=== PATIENT | male | born 1975 | race Caucasian/White ===

== ENCOUNTER 2021-04-21 11:31 | Emergency (ER) | payer MEDICARE, MEDICAID ==
--- NOTE | 2021-04-21 11:44 | EDM.PDOC ---
ED HPI GENERAL MEDICAL PROBLEM - General Stated Complaint: fell down 8 steps Time Seen by Provider: 04/21/21 11:31 Source of Information: Reports: Patient History Limitations: Reports: No Limitations - History of Present Illness INITIAL COMMENTS - FREE TEXT/NARRATIVE: 45-year-old male presents for fall injury. Patient states that he slipped walking down stairs and landed on his buttocks sliding down about 8 steps. He denies any lower extremity pain, head injury, LOC. He has been ambulatory after the fall. He notes pain in the middle of his lower back. low back Pain Score (Numeric/FACES): 5 - Related Data Allergies Allergy/AdvReac Type Severity Reaction Status Date / Time Penicillins Allergy Cannot Verified 04/21/21 12:08 Remember nexium Allergy Cannot Uncoded 04/21/21 12:08 Remember Home Meds: Home Meds Diclofenac Sodium [Voltaren Arthritis Pain] 4 gm TOP QID PRN 04/21/21 [History] Enalapril Maleate [Epaned] 5 ml PO BID 04/21/21 [History] Famotidine [Pepcid] 5 ml PO DAILY 04/21/21 [History] Furosemide [Lasix Oral Soln] 5 ml PO DAILY 04/21/21 [History] metFORMIN HCl [Metformin HCl] 5 ml PO BID 04/21/21 [History] ED ROS GENERAL - Review of Systems Review Of Systems: Comprehensive ROS is negative, except as noted in HPI. ED EXAM, GENERAL - Physical Exam Exam: See Below Exam Limited By: No Limitations General Appearance: Alert, WD/WN, No Apparent Distress Ears: Hearing Grossly Normal Throat/Mouth: Normal Voice, No Airway Compromise Head: Atraumatic, Normocephalic Neck: Normal Inspection, Non-Tender. No: Tender Midline Respiratory/Chest: No Respiratory Distress, No Accessory Muscle Use Cardiovascular: Normal Peripheral Pulses, Regular Rate, Rhythm Back Exam: Normal Inspection, Other (lumbar musculature and SP TTP diffuse without palpable deformity) Extremities: Normal Inspection, Normal Range of Motion, Non-Tender Neurological: Alert, Normal Cognition, Normal Gait Psychiatric: Normal Affect, Normal Mood Skin Exam: Warm, Dry, Intact, Normal Color Course - Vital Signs Last Recorded V/S: Last Vital Signs Temp 97.4 F 04/21/21 12:05 Pulse 87 04/21/21 12:05 Resp 16 04/21/21 12:05 BP 117/78 04/21/21 12:05 Pulse Ox 94 L 04/21/21 12:05 - Orders/Labs/Meds Meds: Medications Discontinued Medications Generic Name Dose Route Start Last Admin Trade Name Moiz PRN Reason Stop Dose Admin Ketorolac Tromethamine 30 mg 04/21/21 12:17 04/21/21 12:26 Ketorolac 30 Mg/Ml Sdv IM 04/21/21 12:18 30 mg ONETIME ONE Administration Orphenadrine Citrate 60 mg 04/21/21 12:17 04/21/21 12:27 Orphenadrine 60 Mg/2 Ml Inj IM 04/21/21 12:18 60 mg ONETIME ONE Administration - Re-Assessments/Exams Free Text/Narrative Re-Assessment/Exam: 04/21/21 12:18 Low suspicion fracture. Will get lumbar CT. Will treat symptomatically with Toradol and Norflex. Patient notes that he is unable to take pills. 04/21/21 14:[address]; will d/c with instructions for tylenol PRN pain Departure - Departure Time of Disposition: 14:00 Disposition: Home, Self-Care 01 Condition: Good Clinical Impression: Back pain Qualifiers: Back pain location: low back pain Chronicity: acute Back pain laterality: midline Sciatica presence: without sciatica Qualified Code(s): M54.5 - Low back pain - Discharge Information Instructions: Acute Back Pain, Adult Referrals: Sanjay Alfonso MD [Primary Care Provider] - Additional Instructions: The following information is given to patients seen in the emergency department who are being discharged to home. This information is to outline your options for follow-up care. We provide all patients seen in our emergency department with a follow-up referral. The need for follow-up, as well as the timing and circumstances, are variable depending upon the specifics of your emergency department visit. If you don't have a primary care physician on staff, we will provide you with a referral. We always advise you to contact your personal physician following an emergency department visit to inform them of the circumstance of the visit and for follow-up with them and/or the need for any referrals to a consulting specialist. The emergency department will also refer you to a specialist when appropriate. This referral assures that you have the opportunity for follow-up care with a specialist. All of these measure are taken in an effort to provide you with optimal care, which includes your follow-up. Under all circumstances we always encourage you to contact your private physician who remains a resource for coordinating your care. When calling for follow-up care, please make the office aware that this follow-up is from your recent emergency room visit. If for any reason you are refused follow-up, please contact the [facility] Emergency Department at and asked to speak to the emergency department charge nurse. Please follow up with your primary care physician. If you do not have a primary care physician, see below: [facility] [address] [place] [id number] [facility] [address] [place] [id number] [facility] [address] [place] [address] Sepsis Event Note (ED) - Focused Exam Vital Signs: Vital Signs Temp Pulse Resp BP Pulse Ox 04/21/21 12:05 97.4 F 87 16 117/78 94 L
[2021-04-21] MEDS ORDERED: Ketorolac 30 MG/ML SDV IM ONE (12:17)
[2021-04-21] MEDS ORDERED: Orphenadrine 60 MG/2 ML Inj IM ONE (12:17)
--- NOTE | 2021-04-21 13:57 | CT ---
INDICATION: Trauma, fall with pain. TECHNIQUE: CT lumbar spine without contrast. COMPARISON: None FINDINGS: Vertebrae: Alignment is normal. There are no fractures or suspicious bony lesions. Discs and facet joints: Disc spaces and facets are within normal limits. Extraspinal findings: Prevertebral soft tissues and visualized retroperitoneum are unremarkable. IMPRESSION: Unremarkable lumbar spine CT. No sign of acute injury. Please note that all CT scans at this facility use dose modulation, iterative reconstruction, and/or weight-based dosing when appropriate to reduce radiation dose to as low as reasonably achievable. Dictated by Pramod Cardoza MD @ 04/21/2021 1:56:[address] Pramod Cardoza @ Apr 21 2021 1:56PM
== END 2021-04-21 14:13 | disposition home or self-care (01) ==
LOC: MW.ED 11:31
DX: M54.5 Low back pain (principal); Z88.0 Allergy status to penicillin; Z88.8 Allergy status to other drugs, medicaments and biological substances; Z79.84 Long term (current) use of oral hypoglycemic drugs; W17.89XA Other fall from one level to another, initial encounter
CPT/HCPCS: 72131; 96372; 99283; J1885; J2360

== ENCOUNTER 2021-05-26 11:17 | Emergency (ER) | payer MEDICARE, MEDICAID ==
--- NOTE | 2021-05-26 11:58 | EDM.PDOC ---
ED HPI GENERAL MEDICAL PROBLEM - General Chief Complaint: Respiratory Problem Stated Complaint: COUGHING UP BLOOD Time Seen by Provider: 05/26/21 11:19 Source of Information: Reports: Patient History Limitations: Reports: No Limitations - History of Present Illness INITIAL COMMENTS - FREE TEXT/NARRATIVE: Patient is a 45-year-old male who was sent down from clinic for evaluation of coughing up blood. Patient cannot be seen there because he has been harassing some of the nurses there and goes here frequently and reports he is talking some the nurses as well. On exam we treat the patient he states he has been coughing up blood for the past few years and that he has had multiple x-rays if you can tell them and thought he is fine. He does not cough blood every day Is occa sionally. Not taking any blood thinners. Has no shortness of breath or any direct blows or injuries to his chest. - Related Data Allergies Allergy/AdvReac Type Severity Reaction Status Date / Time Penicillins Allergy Cannot Verified 04/21/21 12:08 Remember nexium Allergy Cannot Uncoded 04/21/21 12:08 Remember Home Meds: Home Meds Diclofenac Sodium [Voltaren Arthritis Pain] 4 gm TOP QID PRN 04/21/21 [History] Enalapril Maleate [Epaned] 5 ml PO BID 04/21/21 [History] Famotidine [Pepcid] 5 ml PO DAILY 04/21/21 [History] Furosemide [Lasix Oral Soln] 5 ml PO DAILY 04/21/21 [History] metFORMIN HCl [Metformin HCl] 5 ml PO BID 04/21/21 [History] Past Medical History Cardiovascular History: Reports: High Cholesterol, Hypertension, Other (See Below) Other Cardiovascular History: Grade 1 Dystolic Dysfuntion Psychiatric History: Reports: Developmental Delay Endocrine/Metabolic History: Reports: Diabetes, Type II - Infectious Disease History Infectious Disease History: Reports: Chicken Pox - Past Surgical History Musculoskeletal Surgical History: Reports: Other (See Below) Other Musculoskeletal Surgeries/Procedures:: Right Arm ED ROS GENERAL - Review of Systems Review Of Systems: See Below Constitutional: Reports: No Symptoms HEENT: Reports: No Symptoms Respiratory: Reports: Hemoptysis Cardiovascular: Reports: No Symptoms Endocrine: Reports: No Symptoms GI/Abdominal: Reports: No Symptoms : Reports: No Symptoms Musculoskeletal: Reports: No Symptoms Skin: Reports: No Symptoms Neurological: Reports: No Symptoms Psychiatric: Reports: No Symptoms Hematologic/Lymphatic: Reports: No Symptoms Immunologic: Reports: No Symptoms ED EXAM, GENERAL - Physical Exam Exam: See Below Exam Limited By: No Limitations General Appearance: Alert, WD/WN, No Apparent Distress Eye Exam: Bilateral Eye: EOMI, PERRL Head: Atraumatic, Normocephalic Neck: Normal Inspection, Supple, Non-Tender Respiratory/Chest: No Respiratory Distress, Lungs Clear, Normal Breath Sounds Cardiovascular: Normal Peripheral Pulses, Regular Rate, Rhythm GI/Abdominal: Normal Bowel Sounds, Soft, Non-Tender Extremities: Normal Inspection, Normal Range of Motion Neurological: Alert, Oriented, Normal Cognition, Normal Gait Course - Vital Signs Last Recorded V/S: Last Vital Signs Temp 98.2 F 05/26/21 11:36 Pulse 128 H 05/26/21 13:04 Resp 19 05/26/21 13:04 BP 133/98 H 05/26/21 13:04 Pulse Ox 95 05/26/21 13:04 - Orders/Labs/Meds Labs: Laboratory Tests 05/26/21 05/26/21 05/26/21 Range/Units 12:30 12:53 12:53 WBC 11.68 H (4.0-11.0) K/uL RBC 5.70 (4.50-5.90) M/uL Hgb 16.8 (13.0-17.0) g/dL Hct 49.3 (38.0-50.0) % MCV 86.5 (80.0-98.0) fL MCH 29.5 (27.0-32.0) pg MCHC 34.1 (31.0-37.0) g/dL RDW Std Deviation 44.4 (28.0-62.0) fl RDW Coeff of [place] 14 (11.0-15.0) % Plt Count 334 (150-400) K/uL MPV 9.60 (7.40-12.00) fL Neut % (Auto) 75.2 (48.0-80.0) % Lymph % (Auto) 15.3 L (16.0-40.0) % [place] % (Auto) 7.8 (0.0-15.0) % Eos % (Auto) 1.5 (0.0-7.0) % Baso % (Auto) 0.2 (0.0-1.5) % Neut # (Auto) 8.8 H (1.4-5.7) K/uL Lymph # (Auto) 1.8 (0.6-2.4) K/uL [place] # (Auto) 0.9 H (0.0-0.8) K/uL Eos # (Auto) 0.2 (0.0-0.7) K/uL Baso # (Auto) 0.0 (0.0-0.1) K/uL Nucleated RBC % 0.0 /100WBC Nucleated RBCs # 0 K/uL INR 0.98 APTT 24.8 (18.6-31.3) SEC Sodium 138 (136-148) mmol/L Potassium 4.3 (3.5-5.1) mmol/L Chloride 103 (98-107) mmol/L Carbon Dioxide 26.9 (21.0-32.0) mmol/L BUN 13 (7.0-18.0) mg/dL Creatinine 0.9 (0.8-1.3) mg/dL Est Cr Clr Drug Dosing TNP Estimated GFR (MDRD) > 60.0 ml/min Glucose 155 H (74-106) mg/dL Calcium 8.9 (8.5-10.1) mg/dL - Re-Assessments/Exams Free Text/Narrative Re-Assessment/Exam: 05/26/21 13:21 Patient x-ray and labs reviewed. Patient hemoglobin is stable. Patient had no coughing up blood here and again is to have been over the past 2 years. Patient will be discharged to follow-up with pulmonary doctor as outpatient. Departure - Departure Time of Disposition: 13:21 Disposition: Home, Self-Care 01 Condition: Good Clinical Impression: Hemoptysis - Discharge Information *PRESCRIPTION DRUG MONITORING PROGRAM REVIEWED*: Not Applicable *COPY OF PRESCRIPTION DRUG MONITORING REPORT IN PATIENT AGUSTÍN: Not Applicable Instructions: Hemoptysis Referrals: PCP,None [Primary Care Provider] - Forms: ED Department Discharge Additional Instructions: The following information is given to patients seen in the emergency department who are being discharged to home. This information is to outline your options for follow-up care. We provide all patients seen in our emergency department with a follow-up referral. The need for follow-up, as well as the timing and circumstances, are variable depending upon the specifics of your emergency department visit. If you don't have a primary care physician on staff, we will provide you with a referral. We always advise you to contact your personal physician following an emergency department visit to inform them of the circumstance of the visit and for follow-up with them and/or the need for any referrals to a consulting specialist. The emergency department will also refer you to a specialist when appropriate. This referral assures that you have the opportunity for follow-up care with a specialist. All of these measure are taken in an effort to provide you with optimal care, which includes your follow-up. Under all circumstances we always encourage you to contact your private physician who remains a resource for coordinating your care. When calling for follow-up care, please make the office aware that this follow-up is from your recent emergency room visit. If for any reason you are refused follow-up, please contact the [facility] Emergency Department at and asked to speak to the emergency department charge nurse. Please follow up with your primary care physician. If you do not have a primary care physician, see below: [facility] [address] [place] [id number] [facility] [address] [place] [id number] Seen for coughing of blood today. On x-ray your x-ray is clear your blood level is also normal this been going on for the past few years recommend you continue to follow-up with your pulmonary doctor your primary doctor. If any other concerning signs or symptoms you can return to the ED. Sepsis Event Note (ED) - Focused Exam Vital Signs: Vital Signs Temp Pulse Resp BP Pulse Ox 05/26/21 13:04 128 H 19 133/98 H 95 05/26/21 12:36 86 18 141/100 H 96 05/26/21 12:15 126 H 18 124/86 95 05/26/21 11:36 98.2 F 104 H 18 116/90 98 - Assessment/Plan Plan: Patient is a 45-year-old male who presents today for evaluation of coughing up blood. Patient's been seen multiple doctors and is been going on for the past few years. We will obtain labs CBC call headaches and x-ray and reassess patient
--- NOTE | 2021-05-26 13:01 | CR ---
INDICATION: Hemoptysis TECHNIQUE: Chest 2 views COMPARISON: 01/25/2010 FINDINGS: Cardiovascular and mediastinum: Heart size and vasculature are normal in caliber and appearance. Lungs and pleural spaces: Minimal left basilar atelectasis. Lungs and pleural spaces otherwise clear. Bones and soft tissues: Prominent gastric bubble. Otherwise unremarkable. IMPRESSION: No acute findings and no significant changes from the prior exam. No specific finding to explain hemoptysis. Dictated by Pramod Cardoza MD @ 05/26/2021 1:00:[address] Pramod Cardoza @ May 26 2021 1:00PM
[2021-05-26 13:15] LABS: BLOOD UREA NITROGEN,BUN 13 mg/dL (7.0-18.0); CARBON DIOXIDE,CO2 26.9 mmol/L (21.0-32.0); CHLORIDE,CL 103 mmol/L (98-107); GLUCOSE RANDOM 155 mg/dL (74-106); POTASSIUM,K 4.3 mmol/L (3.5-5.1); SODIUM,NA 138 mmol/L (136-148)
== END 2021-05-26 13:31 | disposition home or self-care (01) ==
LOC: MW.ED 11:17
DX: R04.2 Hemoptysis (principal); I10 Essential (primary) hypertension; E11.9 Type 2 diabetes mellitus without complications; Z79.84 Long term (current) use of oral hypoglycemic drugs; E78.00 Pure hypercholesterolemia, unspecified; Z88.0 Allergy status to penicillin; Z79.899 Other long term (current) drug therapy; Z88.8 Allergy status to other drugs, medicaments and biological substances
CPT/HCPCS: 36415; 71046; 71046-26; 80048; 85025; 85610; 85730; 99285-25